=== PATIENT | male | born 1990 | race Caucasian/White ===

== ENCOUNTER 2016-07-30 11:04 | Emergency (ER) | payer OTHER ==
--- NOTE | 2016-07-30 11:47 | ED ---
General Adult HPI - General Chief complaint: Upper Respiratory Infection Stated complaint: POSS URI Time Seen by Provider: 07/30/16 11:19 Source: patient, RN notes reviewed, old records reviewed Mode of arrival: ambulatory Limitations: no limitations - History of Present Illness Initial comments: This is a 26-year-old male here for evaluation. This patient does reveal a cough congestion runny nose and possible fever. Patient states he has a history of smoking but no other specific medical history no sick contacts or travel history. Patient states he had runny nose that developed in the cough and congestion. Symptoms progressively worsening, they started on Monday but really got worse Monday and today. Again no travel history, no significant shortness of breath - Related Data Home Medications Medication Instructions Recorded Confirmed HYDROcodone/APAP 7.5-325MG [[place] 1 tab PO BID 12/25/15 07/30/16 7.5-325] Ibuprofen [Motrin] 800 mg PO BID 12/25/15 07/30/16 Previous Rx's Medication Instructions Recorded Albuterol Inhaler [Ventolin Hfa 1 - 2 puff INHALATION Q6HR #1 07/30/16 Inhaler] inhaler Cetirizine HCl/Pseudoephedrine 1 each PO BID #30 tab.er.12h 07/30/16 [Zyrtec-D Tablet] Levofloxacin [Levaquin] 750 mg PO DAILY #7 tab 07/30/16 Naproxen [Naprosyn] 500 mg PO Q12HR #60 tab 07/30/16 Allergies Allergy/AdvReac Type Severity Reaction Status Date / Time No Known Allergies Allergy Verified 07/30/16 12:01 Review of Systems ROS Statement: Those systems with pertinent positive or pertinent negative responses have been documented in the HPI. ROS Other: All systems not noted in ROS Statement are negative. Past Medical History Additional Past Medical History / Comment(s): kidney stones. degenerative disc dz History of Any Multi-Drug Resistant Organisms: None Reported Past Surgical History: Adenoidectomy, Cholecystectomy, Tonsillectomy Additional Past Surgical History / Comment(s): lithotripsy, wisdom teeth. Past Anesthesia/Blood Transfusion Reactions: No Reported Reaction Past Psychological History: ADD/ADHD, Anxiety, Depression Smoking Status: Current every day smoker Past Alcohol Use History: Rare Past Drug Use History: None Reported - Past Family History Father Family Medical History: Myocardial Infarction ([place]) Additional Family Medical History / Comment(s): [place] x 3 General Exam Limitations: no limitations General appearance: alert, in no apparent distress Head exam: Present: atraumatic, normocephalic, normal inspection Eye exam: Present: normal appearance, PERRL, EOMI. Absent: scleral icterus, conjunctival injection, periorbital swelling ENT exam: Present: normal exam, mucous membranes moist Neck exam: Present: normal inspection. Absent: tenderness, meningismus, lymphadenopathy Respiratory exam: Present: normal lung sounds bilaterally, rhonchi. Absent: respiratory distress, wheezes, rales, stridor Cardiovascular Exam: Present: regular rate, normal rhythm, normal heart sounds. Absent: systolic murmur, diastolic murmur, rubs, gallop, clicks GI/Abdominal exam: Present: soft, normal bowel sounds. Absent: distended, tenderness, guarding, rebound, rigid Extremities exam: Present: normal inspection, full ROM, normal capillary refill. Absent: tenderness, pedal edema, joint swelling, calf tenderness Back exam: Present: normal inspection Neurological exam: Present: alert, oriented X3, CN II-XII intact Psychiatric exam: Present: normal affect, normal mood Skin exam: Present: warm, dry, intact, normal color. Absent: rash Course Vital Signs 07/30/16 11:12 Temperature 98.6 F Pulse Rate 94 Respiratory 18 Rate Blood Pressure 137/85 O2 Sat by Pulse 93 L Oximetry - Reevaluation(s) Reevaluation #1: 07/30/16 11:46 Patient's in no acute respiratory distress Medical Decision Making - Medical Decision Making 18 male here for evaluation of URI, patient with URI and probable bronchitis versus early pneumonia. Patient was treated appropriately - Radiology Data Radiology results: report reviewed (Chest x-ray two-view is negative for acute disease), image reviewed Disposition Clinical Impression: Upper respiratory infection, Pharyngitis, Sinusitis, Bronchitis, Pneumonia Disposition: HOME SELF-CARE Condition: Good Instructions: Upper Respiratory Infection (ED), Community Acquired Pneumonia ( ED) Prescriptions: Albuterol Inhaler [Ventolin Hfa Inhaler] 1 - 2 puff INHALATION Q6HR #1 inhaler Cetirizine HCl/Pseudoephedrine [Zyrtec-D Tablet] 1 each PO BID #30 tab.er.12h Levofloxacin [Levaquin] 750 mg PO DAILY #7 tab Naproxen [Naprosyn] 500 mg PO Q12HR #60 tab Referrals: Brien Rashid MD [Primary Care Provider] - 1-2 days
--- NOTE | 2016-07-30 12:13 | XR ---
EXAMINATION TYPE: XR chest 2V DATE OF EXAM: 07/30/2016 11:58 AM COMPARISON: Prior chest x-ray December 25, 2015. HISTORY: Cough and congestion. TECHNIQUE: Frontal and lateral views of the chest are obtained. FINDINGS: Somewhat low lung volumes are redemonstrated. There is no focal air space opacity, pleural effusion, or pneumothorax seen. The cardiac silhouette size is within normal limits. The osseous s tructures are intact. IMPRESSION: No acute cardiopulmonary process. No significant change from prior.
[2016-07-30 12:45] VITALS: BP 140/89; PULSE 87; RESP 16; TEMP 97.9
== END 2016-07-30 12:44 | disposition home or self-care (01) ==
LOC: EC 11:04
DX: J18.9 Pneumonia, unspecified organism (principal); J02.9 Acute pharyngitis, unspecified; J32.9 Chronic sinusitis, unspecified; J40 Bronchitis, not specified as acute or chronic; F17.200 Nicotine dependence, unspecified, uncomplicated; Z79.891 Long term (current) use of opiate analgesic; Z79.1 Long term (current) use of non-steroidal anti-inflammatories (NSAID); Z90.89 Acquired absence of other organs
CPT/HCPCS: 71020; 99284

== ENCOUNTER 2016-10-05 08:16 | Inpatient (IN) | payer OTHER ==
[2016-10-05] MEDS ORDERED: MORPHINE SULFATE 10 MG/ML SYRINGE IM STA (08:41)
--- NOTE | 2016-10-05 08:44 | ED ---
General Adult HPI - General Chief complaint: Back Pain/Injury Stated complaint: back pain Time Seen by Provider: 10/05/16 08:27 Source: patient, RN notes reviewed Mode of arrival: ambulatory Limitations: no limitations - History of Present Illness Initial comments: Patient is a 26-year-old male presents to the emergency room for evaluation. Patient complaining of mid back pain. Patient states he has a history of chronic low back pain. Patient states yesterday while in the bathroom he went to stand up to zip his pants and felt a sharp pain in his mid back. Patient states ever since then the pain has not subsided. Patient states he has been taking his Rio and alternating with ibuprofen for his low back and it has not been improving his symptoms. Patient denies numbness or tingling going down his legs. Patient denies saddle anesthesia. Patient denies urinary or fecal incontinence. Patient denies any recent fall or trauma to his back. Patient also states he has been using albuterol inhaler for cough. Patient does admit that he smokes every day. Patient states that his tongue has turned white after using albuterol inhaler. Patient also complaining of frequency in urination and constant thirst. Patient states this has been going on for the past 3 days. Patient denies fevers or chills. Patient denies any pain or burning during urination or trouble urinating. Patient denies blood in urine. Patient denies abdominal pain, headache, dizziness. Patient denies fevers or chills. - Related Data Home Medications Medication Instructions Recorded Confirmed HYDROcodone/APAP 7.5-325MG [Rio 1 tab PO BID 12/25/15 10/05/16 7.5-325] Ibuprofen [Motrin] 800 mg PO BID 12/25/15 10/05/16 Allergies Allergy/AdvReac Type Severity Reaction Status Date / Time albuterol [From Ventolin HFA] Allergy Swelling Verified 10/05/16 08:51 Review of Systems ROS Statement: Those systems with pertinent positive or pertinent negative responses have been documented in the HPI. ROS Other: All systems not noted in ROS Statement are negative. Past Medical History Additional Past Medical History / Comment(s): kidney stones. degenerative disc dz History of Any Multi-Drug Resistant Organisms: None Reported Past Surgical History: Adenoidectomy, Cholecystectomy, Tonsillectomy Additional Past Surgical History / Comment(s): lithotripsy, wisdom teeth. Past Anesthesia/Blood Transfusion Reactions: No Reported Reaction Past Psychological History: ADD/ADHD, Anxiety, Depression Smoking Status: Current every day smoker Past Alcohol Use History: Rare Past Drug Use History: None Reported - Past Family History Father Family Medical History: Myocardial Infarction ([place]) Additional Family Medical History / Comment(s): [place] x 3 Mother Additional Family Medical History / Comment(s): Mother has nephrolithiasis, gastric ulcers and has had a cholecystectomy. General Exam - General Exam Comments Initial Comments: Sitting in exam room in no acute distress. Limitations: no limitations General appearance: alert, in no apparent distress Head exam: Present: atraumatic, normocephalic, normal inspection Eye exam: Present: normal appearance ENT exam: Present: normal exam Expanded Mouth exam: Present: other (thrush) Neck exam: Present: normal inspection Respiratory exam: Present: normal lung sounds bilaterally. Absent: respiratory distress Cardiovascular Exam: Present: normal rhythm, tachycardia, normal heart sounds Extremities exam: Present: normal inspection Back exam: Present: normal inspection, paraspinal tenderness (Midthoracic spine bilaterally), vertebral tenderness (Midthoracic spine). Absent: CVA tenderness (R), CVA tenderness (L) Neurological exam: Present: alert, oriented X3, CN II-XII intact, normal gait Psychiatric exam: Present: normal affect, normal mood Skin exam: Present: warm, dry, intact, normal color. Absent: rash Course Vital Signs 10/05/16 10/05/16 08:18 13:51 Temperature 97.4 F L 97.5 F L Pulse Rate 125 H 92 Respiratory 18 16 Rate Blood Pressure 133/85 123/66 O2 Sat by Pulse 93 L 94 L Oximetry Medical Decision Making - Medical Decision Making Patient is a 26-year-old male presents emergency room for evaluation of low back pain, frequency in urination, constant thirst and thrush. Urinalysis significant for 4+ glucose. Accu-Chek 471. Acetone negative. Patient given fluids and insulin. Case discussed with Dr. Sher. Dr. Sher discussed case with Dr. Rashid who agreed to admit patient for new onset diabetes. Patient will be placed on insulin sliding scale. Hemoglobin A1c pending. Patient will be placed on nystatin swish and swallow for thrush. Plan discussed with patient. - Lab Data Result diagrams: 10/05/16 09:40 10/05/16 09:40 Lab Results 10/05/16 10/05/16 10/05/16 Range/Units 08:43 09:27 09:40 WBC (3.8-10.6) k/uL RBC (4.30-5.90) m/uL Hgb (13.0-17.5) gm/dL Hct (39.0-53.0) % MCV (80.0-100.0) fL MCH (25.0-35.0) pg MCHC (31.0-37.0) g/dL RDW (11.5-15.5) % Plt Count (150-450) k/uL Neutrophils % % Lymphocytes % % Monocytes % % Eosinophils % % Basophils % % Neutrophils # (1.3-7.7) k/uL Lymphocytes # (1.0-4.8) k/uL Monocytes # (0-1.0) k/uL Eosinophils # (0-0.7) k/uL Basophils # (0-0.2) k/uL Sodium (137-145) mmol/L Potassium (3.5-5.1) mmol/L Chloride (98-107) mmol/L Carbon Dioxide (22-30) mmol/L Anion Gap mmol/L BUN (9-20) mg/dL Creatinine (0.66-1.25) mg/dL Est GFR (MDRD) Af Amer (>60 ml/min/1.73 sqM) Est GFR (MDRD) Non-Af (>60 ml/min/1.73 sqM) Glucose (74-99) mg/dL POC Glucose (mg/dL) 471 H (75-99) mg/dL POC Glu Armored [employer] Guard And Driver ID RossLinda smith [address] Glu mg/dL mg/dL Hemoglobin A1c (4.2-6.1) % Calcium (8.4-10.2) mg/dL Total Bilirubin (0.2-1.3) mg/dL AST (17-59) U/L ALT (21-72) U/L Alkaline Phosphatase (38-126) U/L Total Protein (6.3-8.2) g/dL Albumin (3.5-5.0) g/dL Amylase (30-110) U/L Lipase 43 (23-300) U/L Urine Color Yellow Urine Appearance Clear (Clear) Urine pH 5.5 (5.0-8.0) Ur Specific Calvin 1.029 (1.001-1.035) Urine Protein 1+ H (Negative) Urine Glucose (UA) 4+ H (Negative) Urine Ketones Negative (Negative) Urine Blood Negative (Negative) Urine Nitrate Negative (Negative) Urine Bilirubin Negative (Negative) Urine Urobilinogen <2.0 (<2.0) mg/dL Ur Leukocyte Esterase Negative (Negative) Urine RBC 1 (0-5) /hpf Urine WBC 1 (0-5) /hpf Acetone, Qual (Negative) 10/05/16 10/05/16 10/05/16 Range/Units 09:40 09:40 09:40 WBC 12.6 H (3.8-10.6) k/uL RBC 5.18 (4.30-5.90) m/uL Hgb 16.5 (13.0-17.5) gm/dL Hct 46.1 (39.0-53.0) % MCV 88.8 (80.0-100.0) fL MCH 31.9 (25.0-35.0) pg MCHC 35.9 (31.0-37.0) g/dL RDW 14.0 (11.5-15.5) % Plt Count 284 (150-450) k/uL Neutrophils % 60 % Lymphocytes % 28 % Monocytes % 7 % Eosinophils % 2 % Basophils % 1 % Neutrophils # 7.6 (1.3-7.7) k/uL Lymphocytes # 3.6 (1.0-4.8) k/uL Monocytes # 0.8 (0-1.0) k/uL Eosinophils # 0.2 (0-0.7) k/uL Basophils # 0.1 (0-0.2) k/uL Sodium 134 L (137-145) mmol/L Potassium 4.4 (3.5-5.1) mmol/L Chloride 95 L (98-107) mmol/L Carbon Dioxide 25 (22-30) mmol/L Anion Gap 14 mmol/L BUN 9 (9-20) mg/dL Creatinine 0.76 (0.66-1.25) mg/dL Est GFR (MDRD) Af Amer >60 (>60 ml/min/1.73 sqM) Est GFR (MDRD) Non-Af >60 (>60 ml/min/1.73 sqM) Glucose 467 H* (74-99) mg/dL POC Glucose (mg/dL) (75-99) mg/dL POC Glu [employer] ID Estimated Ave Glu mg/dL 243 mg/dL Hemoglobin A1c 10.1 H (4.2-6.1) % Calcium 10.1 (8.4-10.2) mg/dL Total Bilirubin 1.6 H (0.2-1.3) mg/dL AST 25 (17-59) U/L ALT 67 (21-72) U/L Alkaline Phosphatase 167 H (38-126) U/L Total Protein 7.2 (6.3-8.2) g/dL Albumin 4.3 (3.5-5.0) g/dL Amylase 35 (30-110) U/L Lipase (23-300) U/L Urine Color Urine Appearance (Clear) Urine pH (5.0-8.0) Ur Specific Calvin (1.001-1.035) Urine Protein (Negative) Urine Glucose (UA) (Negative) Urine Ketones (Negative) Urine Blood (Negative) Urine Nitrate (Negative) Urine Bilirubin (Negative) Urine Urobilinogen (<2.0) mg/dL Ur Leukocyte Esterase (Negative) Urine RBC (0-5) /hpf Urine WBC (0-5) /hpf Acetone, Qual Negative (Negative) 10/05/16 Range/Units 13:23 WBC (3.8-10.6) k/uL RBC (4.30-5.90) m/uL Hgb (13.0-17.5) gm/dL Hct (39.0-53.0) % MCV (80.0-100.0) fL MCH (25.0-35.0) pg MCHC (31.0-37.0) g/dL RDW (11.5-15.5) % Plt Count (150-450) k/uL Neutrophils % % Lymphocytes % % Monocytes % % Eosinophils % % Basophils % % Neutrophils # (1.3-7.7) k/uL Lymphocytes # (1.0-4.8) k/uL Monocytes # (0-1.0) k/uL Eosinophils # (0-0.7) k/uL Basophils # (0-0.2) k/uL Sodium (137-145) mmol/L Potassium (3.5-5.1) mmol/L Chloride (98-107) mmol/L Carbon Dioxide (22-30) mmol/L Anion Gap mmol/L BUN (9-20) mg/dL Creatinine (0.66-1.25) mg/dL Est GFR (MDRD) Af Amer (>60 ml/min/1.73 sqM) Est GFR (MDRD) Non-Af (>60 ml/min/1.73 sqM) Glucose (74-99) mg/dL POC Glucose (mg/dL) 351 H (75-99) mg/dL POC Glu [employer] ID Linda Hawkins [address] Glu mg/dL mg/dL Hemoglobin A1c (4.2-6.1) % Calcium (8.4-10.2) mg/dL Total Bilirubin (0.2-1.3) mg/dL AST (17-59) U/L ALT (21-72) U/L Alkaline Phosphatase (38-126) U/L Total Protein (6.3-8.2) g/dL Albumin (3.5-5.0) g/dL Amylase (30-110) U/L Lipase (23-300) U/L Urine Color Urine Appearance (Clear) Urine pH (5.0-8.0) Ur Specific Calvin (1.001-1.035) Urine Protein (Negative) Urine Glucose (UA) (Negative) Urine Ketones (Negative) Urine Blood (Negative) Urine Nitrate (Negative) Urine Bilirubin (Negative) Urine Urobilinogen (<2.0) mg/dL Ur Leukocyte Esterase (Negative) Urine RBC (0-5) /hpf Urine WBC (0-5) /hpf Acetone, Qual (Negative) Disposition Clinical Impression: New onset type 2 diabetes mellitus, Hyperglycemia, Back pain, Thrush Disposition: ADMITTED IP TO THIS [facility] Condition: Stable Decision Date: 10/05/16
[2016-10-05 09:07] LABS: Appearance,Urine Clear (Clear); Bilirubin,Urine Negative (Negative); Glucose,Urine (UA) 4+ (Negative); Ketones,Urine Negative (Negative); Leukocyte Esterase,Urine Negative (Negative); Nitrite,Urine Negative (Negative); PH, Urine 5.5 (5.0-8.0); Particle Count 546; Protein,Urine 1+ (Negative); RBC,Urine 1 /hpf (0-5); Specific Gravity,Urine 1.029 (1.001-1.035); UA Billing (MACRO vs. MICRO) MICRO; Urobilinogen,Urine <2.0 mg/dL (<2.0); WBC,Urine 1 /hpf (0-5)
[2016-10-05 09:28] LABS: Glucose,Whole Blood 471 mg/dL (75-99)
[2016-10-05] MEDS ORDERED: SODIUM CHLORIDE 0.9% 1,000 ML IV ONE ×2 (09:36→11:48)
[2016-10-05 10:01] LABS: Basophils # (A) 0.1 k/uL (0-0.2); Basophils % (A) 1 %; CH 32.5; CHCM 36.7; Eosinophils # (A) 0.2 k/uL (0-0.7); Eosinophils % (A) 2 %; HCT 46.1 % (39.0-53.0); HDW 3.17; HGB 16.5 gm/dL (13.0-17.5); Luc # (Auto) 0.34; Luc % (Auto) 3; Lymphocytes # (A) 3.6 k/uL (1.0-4.8); Lymphocytes % (A) 28 %; MCH 31.9 pg (25.0-35.0); MCHC 35.9 g/dL (31.0-37.0); MCV 88.8 fL (80.0-100.0); Mean Platelet Volume 8.5; Monocytes # (A) 0.8 k/uL (0-1.0); Monocytes % (A) 7 %; Neutrophils # (A) 7.6 k/uL (1.3-7.7); Neutrophils % (A) 60 %; RBC 5.18 m/uL (4.30-5.90); WBC 12.6 k/uL (3.8-10.6); WBC (Perox) 12.04
[2016-10-05 10:27] LABS: ALT 67 U/L (21-72); AST 25 U/L (17-59); Alkaline Phosphatase 167 U/L (38-126); Amylase 35 U/L (30-110); Anion Gap 14 mmol/L; Blood Urea Nitrogen 9 mg/dL (9-20); Calcium 10.1 mg/dL (8.4-10.2); Carbon Dioxide 25 mmol/L (22-30); Chloride 95 mmol/L (98-107); Non-African American GFR(MDRD) >60 (>60 ml/min/1.73 sqM); Potassium 4.4 mmol/L (3.5-5.1); Sodium 134 mmol/L (137-145); Total Bilirubin 1.6 mg/dL (0.2-1.3); Total Protein 7.2 g/dL (6.3-8.2)
[2016-10-05 10:31] LABS: Glucose 467 mg/dL (74-99)
[2016-10-05] MEDS ORDERED: INSULIN REGULAR 100 UNIT/ML VIAL SQ STA (11:48)
[2016-10-05] MEDS ORDERED: NALOXONE 0.4 MG/ML 1 ML VIAL IV PRN (13:10)
[2016-10-05] MEDS ORDERED: ONDANSETRON 4 MG/2 ML VIAL IVP PRN (13:10)
[2016-10-05] MEDS ORDERED: HYDROcodone/APAP 5-325MG 1 EACH TAB PO PRN (13:10)
[2016-10-05] MEDS ORDERED: ACETAMINOPHEN TAB 325 MG TAB PO PRN (13:10)
[2016-10-05 13:24] LABS: Glucose,Whole Blood 351 mg/dL (75-99)
[2016-10-05 14:26] LABS: Hemoglobin A1C 10.1 % (4.2-6.1)
[2016-10-05] MEDS: SODIUM CHLORIDE 0.9% 1,000 ML IV SCH (14:28)
--- NOTE | 2016-10-05 15:23 | XR ---
EXAM TYPE: LUMBAR SPINE X RAY SERIES COMPARISON: NONE HISTORY: Pain TECHNIQUE: 4 views are submitted. FINDINGS: Alignment is anatomic. The pedicles are intact. The transverse processes are intact. There is no s pondylolysis or spondylolisthesis. Spina bifida occulta lumbosacral junction. IMPRESSION: 1. No acute process.
[2016-10-05] MEDS: HYDROmorphone 1 MG/ML 1 ML SYRINGE IVP PRN (16:43)
[2016-10-05 16:54] LABS: Glucose,Whole Blood 310 mg/dL (75-99)
[2016-10-05] MEDS: INSULIN LISPRO (humaLOG) 300 UNIT/3 ML VIAL SQ SCH ×2 (17:20→21:10)
[2016-10-05] MEDS: NYSTATIN 100,000 UNIT/ML SUSP 500,000 UNIT/5 ML CUP PO SCH ×2 (17:24→21:09)
[2016-10-05 19:38] LABS: Glucose,Whole Blood 384 mg/dL (75-99)
[2016-10-05] MEDS: metFORMIN 500 MG TAB PO SCH (19:39)
[2016-10-05 20:07] LABS: Hepatitis B Surface Ag Index 0.07
[2016-10-05 20:12] LABS: Hepatitis B Core IgM Index 0.06
[2016-10-05 20:24] LABS: Hepatitis C Virus IgG Ab Negative (Negative); Hepatitis C Virus IgG Index 0.01
[2016-10-05 20:54] LABS: Glucose,Whole Blood 335 mg/dL (75-99)
[2016-10-05] MEDS ORDERED: INSULIN GLARGINE 100 UNIT/ML 10 ML VIAL SQ SCH (21:00)
[2016-10-05] MEDS: HYDROcodone/APAP 7.5-325MG 1 EACH TAB PO SCH (21:08)
[2016-10-05] MEDS: IBUPROFEN 800 MG TAB PO SCH (21:08)
--- NOTE | 2016-10-05 22:18 | HP ---
CHIEF COMPLAINT: A 26-year-old white male with back pain and injury, uncontrolled diabetes mellitus, new onset. A 26-year-old white male was brought into the emergency due to severe polyuria, dysuria cough, congestion and worsening low back pain. His x-ray in the ER was negative. He has been taking ibuprofen with some improvement to his symptoms. He denies any tingling on his legs or saddle anesthesia. Denies urinary or fecal incontinence. He is also complaining of frequency in urination and constant thirst. He was found to have sugar in the high 400s for which he was admitted to the hospital for new onset diabetes mellitus, uncontrolled. Aspirin and Lucile for pain. ALLERGIES: ALBUTEROL. REVIEW OF SYSTEMS: Fourteen-point review of systems negative except for seen in the HPI. Past surgical history of renal stones, degenerative disc disease, adenoidectomy, cholecystectomy, tonsillectomy, lithotripsy, ADD, anxiety, depression. Current every day smoker. No alcohol. No illicit drugs. PAST MEDICAL HISTORY: Myocardial infarction x3. His mother had nephrolithiasis, gastric ulcers, cholecystectomy. PHYSICAL EXAM: VITAL SIGNS: Stable, afebrile. Temp 97.4, pulse 90s/100s, respiratory rate 16 to 18, O2 93% to 94% on room air. Blood pressure 120s to 130s over 60s to 70s. CARDIOVASCULAR: S1, S2. Lungs show scattered wheezes, rhonchi. VASCULAR: Normal dorsalis pedis, posterior tibial, radial pulses. ENDOCRINE: Current BMI is over 40. OPHTHALMOLOGIC: Pupils equal, round, and reactive to light and accommodation. NEUROLOGIC: Alert and oriented x3. PSYCHIATRIC: Fair mood and affect. ASSESSMENT: 1. Uncontrolled diabetes mellitus. Accu-Chek protocol will be ordered. Metformin will be started. Pain medicines will be given for pain. 2. Hyponatremia. 3. Metformin will be started and Soma will be started. Back pain will be controlled. IV fluids will be given. Please see further orders.
[2016-10-06] MEDS: HYDROmorphone 1 MG/ML 1 ML SYRINGE IVP PRN ×2 (00:15→08:04)
[2016-10-06] MEDS: SODIUM CHLORIDE 0.9% 1,000 ML IV SCH ×2 (00:19→10:51)
[2016-10-06] MEDS: metFORMIN 500 MG TAB PO SCH (07:51)
[2016-10-06] MEDS: INSULIN LISPRO (humaLOG) 300 UNIT/3 ML VIAL SQ SCH ×2 (07:51→12:35)
[2016-10-06] MEDS: HYDROcodone/APAP 7.5-325MG 1 EACH TAB PO SCH (07:57)
[2016-10-06] MEDS: IBUPROFEN 800 MG TAB PO SCH (07:58)
[2016-10-06] MEDS: NYSTATIN 100,000 UNIT/ML SUSP 500,000 UNIT/5 ML CUP PO SCH ×2 (07:58→12:12)
[2016-10-06 08:00] LABS: Glucose,Whole Blood 300 mg/dL (75-99)
[2016-10-06 08:02] VITALS: BP 124/75; PULSE 92; RESP 20; TEMP 97.5
--- NOTE | 2016-10-06 09:01 | US ---
EXAMINATION TYPE: US abdomen complete DATE OF EXAM: 10/06/2016 8:17 AM COMPARISON: CT abdomen pelvis April 20, 2015 CLINICAL HISTORY: ruq pain, patient 6'2 and 350lbs. EXAM MEASUREMENTS: Liver Length: 23.0 cm Gallbladder Wall: Surgically absent cm CBD: 0.4 cm Spleen: 13.2 cm Right Kidney: 11.8 x 4.4 x 5.5cm Left Kidney: 12.8 x 5.1 x 6.2 cm TECHNOLOGIST IMPRESSION: Morbidly obese patient, technically difficult study, limited visualization Pancreas: Obscured by bowel gas Liver: Increased attenuation, decreased visualization of vessels suggestive of fatty infiltrate Gallbladder: Surgically absent Evidence for sonographic Villalta's sign: No CBD: wnl Spleen: upper limits of normal in size Right Kidney: inferior pole obscured by overlying bowel gas Left Kidney: inferior pole obscured by overlying bowel gas Upper IVC: wnl Abd Aorta: only visualized mid, mid wnl, prox, distal, and bifurcation obscured by bowel gas Exam is noted suboptimal secondary to overlying bowel gas and patient's large body habitus. The liver is heterogeneously hyperechoic. No intrahepatic ductal dilatation is identified. Evaluation for focal masses is limited due to the heterogeneity. Finding is presumed on basis of diffuse fatty infiltration. The intrahepatic portion of the IVC and visualized abdominal aorta are within normal l imits. Gallbladder is surgically absent. Common bile duct is unremarkable. The visualized portions of the pancreas is obscured by overlying bowel gas. The spleen is upper limits of normal in size wit hout suspicious focal intrasplenic mass. Kidneys are symmetric and free of hydronephrosis. No renal lesions are seen on images saved. IMPRESSION: Exam is suboptimal, diffuse fatty infiltration of liver is redemonstrated. No acute findi ng is clearly seen to account for patient's symptoms.
[2016-10-06 12:22] VITALS: BMI 43.7
[2016-10-06 12:36] LABS: Glucose,Whole Blood 295 mg/dL (75-99)
--- NOTE | 2016-10-06 13:25 | P.DS ---
Providers Date of admission: 10/05/16 13:36 Expected date of discharge: 10/06/16 Attending physician: Brien Lee [facility] Course: 26-year-old morbid obese chest male being seen with a chief complaint of developing severe polyuria frequent urination frequent thirst drinking constant. Patient was seen in the emergency room blood sugar was noted to be elevated at 400. Additionally patient stated that he was having low back pain. Patient states that he had been taking aspirin and Hunter for pain. Hemoglobin A1c was 10.1 on admission the ultrasound of the abdomen suboptimal show diffuse fatty infiltrations of the liver no acute findings patient was seen by the hot sealing machine operator did receive information about diabetic teaching. Patient was started on Lantus as well as metformin hepatitis panel was negative urinalysis was negative there was no ketones noted patient stated he was comfortable giving insulin he had been instructed by the nursing staff as well as the hot sealing machine operator. Patient was set up for diabetic education classes. Patient was comfortable with being discharged home in the supplies were set up for the patient at home Impression discharge diagnosis Present on admission hyperglycemia constant there is frequent urination blood sugar 400 New-onset type 2 diabetes hemoglobin A1c 10.5 Morbid obesity BMI 43 Active tobacco use one pack a day Chronic lower back pain with a negative lumbar x-rays The above dictated assessment and findings were discussed with dr jesus Franco and the plan of care have been dictated as directed. Faiza Akbar nurse practitioner acting as a scribe for dr lee Patient Condition at Discharge: Stable Plan - Discharge Summary New Discharge Prescriptions: Insulin Glargine [Lantus] 20 unit SQ HS #1 vial metFORMIN HCL 1,000 mg PO BID #60 tab Discharge Medication List HYDROcodone/APAP 7.5-325MG [Hunter 7.5-325] 1 tab PO BID 12/25/15 [History] Ibuprofen [Motrin] 800 mg PO BID 12/25/15 [History] Acetaminophen Tab [Tylenol] 650 mg PO Q6HR PRN #0 tab 10/06/16 [Rx] Insulin Glargine [Lantus] 20 unit SQ HS #1 vial 10/06/16 [Rx] metFORMIN HCL 1,000 mg PO BID #60 tab 10/06/16 [Rx] Follow up Appointment(s)/Referral(s): Brien Lee MD [Primary Care Provider] - 10/10/16 10:30 am (Please pickler helper paperwork at office prior to appointment and fill out. ) Patient Instructions/Handouts: Type 2 Diabetes in Adults (DC) Activity/Diet/Wound Care/Special Instructions: Outpatient diabetes education information provided. Class is located on 3rd floor [facility] inside [facility]. They will call you with class time. Diabetic diet. Diabetic folder given. Weight loss patient has been seen by the hot sealing machine operator about low-fat diet Smoking cessation information has been provided patient's been advised to stop smoking cigarettes Activity as tolerated. Discharge Disposition: HOME SELF-CARE
== END 2016-10-06 14:27 | disposition home or self-care (01) | DRG 638 ==
LOC: EC 08:16 → 4MS4W 13:36
PROVIDERS: ADMIT Family Medicine; ATTEND Family Medicine
DX: E11.65 Type 2 diabetes mellitus with hyperglycemia (principal); E87.1 Hypo-osmolality and hyponatremia; B37.0 Candidal stomatitis; Z68.41 Body mass index [BMI] 40.0-44.9, adult; E66.01 Morbid (severe) obesity due to excess calories; F17.200 Nicotine dependence, unspecified, uncomplicated; F90.9 Attention-deficit hyperactivity disorder, unspecified type; Z82.49 Family history of ischemic heart disease and other diseases of the circulatory system; Z87.442 Personal history of urinary calculi; Z84.1 Family history of disorders of kidney and ureter; M54.5 Low back pain; G89.29 Other chronic pain; Z79.1 Long term (current) use of non-steroidal anti-inflammatories (NSAID); Z88.8 Allergy status to other drugs, medicaments and biological substances
CPT/HCPCS: 36415; 72100; 76700; 80053; 80074; 81001; 82009; 82150; 83036; 83690; 84443; 84681; 85025

== ENCOUNTER 2021-06-03 15:01 | Emergency (ER) | payer OTHER ==
[2021-06-03 18:01] VITALS: BP 131/89; PULSE 85; RESP 20; TEMP 97
[2021-06-03] MEDS ORDERED: LIDOCAINE 1% INJ 10MG/ML (20 ML MDV) SQ ONE (18:40)
[2021-06-03] MEDS ORDERED: BACITRACIN OINT 1 EACH PACKET TOPICAL ONE (18:40)
--- NOTE | 2021-06-03 19:03 | ED ---
General Adult HPI - General Chief complaint: Wound/Laceration Stated complaint: Cut right index finger Time Seen by Provider: 06/03/21 18:34 Source: patient Mode of arrival: ambulatory Limitations: no limitations - History of Present Illness Initial comments: 30-year-old male presents to the emergency Department with complaints of laceration to the second digit of the right hand. Patient states the injury occurred on the blade of a metal reclamation kettle tender approximately an hour prior to arrival. Patient denies loss of sensation or movement; denies head of any foreign body. Bleeding controlled prior to arrival. States his last tetanus shot was in 2012. - Related Data Home Medications Medication Instructions Recorded Confirmed HYDROcodone/APAP 7.5-325MG [[place] 1 tab PO BID 12/25/15 10/05/16 7.5-325] Ibuprofen [Motrin] 800 mg PO BID 12/25/15 10/05/16 Previous Rx's Medication Instructions Recorded Acetaminophen Tab [Tylenol] 650 mg PO Q6HR PRN #0 tab 10/06/16 Insulin Glargine [Lantus Vial] 20 unit SQ HS #1 vial 10/06/16 metFORMIN HCL [Glucophage] 1,000 mg PO BID #60 tab 10/06/16 Allergies Allergy/AdvReac Type Severity Reaction Status Date / Time No Known Allergies Allergy Verified 06/03/21 17:58 Review of Systems ROS Statement: Those systems with pertinent positive or pertinent negative responses have been documented in the HPI. ROS Other: All systems not noted in ROS Statement are negative. Past Medical History Additional Past Medical History / Comment(s): kidney stones. degenerative disc dz History of Any Multi-Drug Resistant Organisms: None Reported Past Surgical History: Adenoidectomy, Cholecystectomy, Tonsillectomy Additional Past Surgical History / Comment(s): lithotripsy, wisdom teeth. Past Anesthesia/Blood Transfusion Reactions: No Reported Reaction Past Psychological History: ADD/ADHD, Anxiety, Depression Smoking Status: Never smoker Past Alcohol Use History: Rare Past Drug Use History: None Reported - Past Family History Father Family Medical History: Myocardial Infarction (MD) Additional Family Medical History / Comment(s): MD x 3 Mother Additional Family Medical History / Comment(s): Mother has nephrolithiasis, gastric ulcers and has had a cholecystectomy. General Exam Limitations: no limitations (Developed, well-nourished male in no acute distress. Initial temperature 97.0, pulse 85, respirations 20, blood pressure 131/89, pulse ox 94% on room air.) General appearance: alert, in no apparent distress Respiratory exam: Present: normal lung sounds bilaterally. Absent: respiratory distress, wheezes, rales, rhonchi, stridor Cardiovascular Exam: Present: regular rate, normal rhythm, normal heart sounds. Absent: systolic murmur, diastolic murmur, rubs, gallop, clicks GI/Abdominal exam: Present: soft, normal bowel sounds. Absent: distended, tenderness, guarding, rebound, rigid Right Hand Wrist exam: Present: full ROM, laceration (1 cm laceration to the second digit, MIP, dorsal surface of the right hand.), other (Distal sensation intact, no loss of range of motion). Absent: tenderness Neuro motor exam: Present: fingers 2-5 abduction intact Vascular: Present: normal capillary refill, radial pulse. Absent: vascular compromise Neurological exam: Present: alert, oriented X3 Psychiatric exam: Present: normal affect, normal mood Skin exam: Present: warm, dry, normal color Course Vital Signs 06/03/21 17:56 Temperature 97.0 F L Pulse Rate 85 Respiratory 20 Rate Blood Pressure 131/89 O2 Sat by Pulse 94 L Oximetry Procedures - Laceration Laceration #1 Consent Obtained: verbal consent Indication: laceration Site: other (Second digit, MIP, dorsal surface right hand.) Size (cm): 1 Description: linear Depth: simple, single layer Anesthetic Used: lidocaine 1% Anesthesia Technique: nerve block (Digital block) Amount (mls): 3 Pre-repair: wound explored, irrigated extensively Type of Sutures: nylon Size of Sutures: 5-0 Number of Sutures: 2 Technique: simple, interrupted Patient Tolerated Procedure: well, no complications Additional Comments: Patient tolerated procedure well. Wound care reviewed at length. Patient verbalizes understanding. Bacitracin dressing applied and finger splint in place. Medical Decision Making - Medical Decision Making 30-year-old male presents to the emergency department for evaluation of 1 cm linear laceration to the second digit, MIP, dorsal surface right hand. Injury was sustained from the blade of the metal reclamation kettle tender. Upon exam, bleeding is controlled. Distal motor neurovascular status intact. No loss of ROM. No obvious or palpable foreign body present . Tetanus shot up-to-date. Declines need for any pain medication. X-ray of the hand was obtained, no fracture or foreign body visualized. 2 sutures were placed without complication. Bacitracin dressing was applied. Finger splint placed. Instructed to follow up with primary care provider for wound recheck in the next 1-2 days, then to have sutures removed in 7-10 days. Discharge instructions, including wound care, were reviewed at length with the patient. He verbalizes understanding and agrees with this plan. The patient's care was discussed with my attending Dr. Mena. - Radiology Data Radiology results: report reviewed, image reviewed X-ray of the right hand was obtained. Report was reviewed in its entirety. Impression per Dr. Flanagan was no acute process. Disposition Clinical Impression: Laceration of finger of right hand Disposition: HOME SELF-CARE Condition: Stable Instructions (If sedation given, give patient instructions): Care For Your Stitches (ED), Laceration (ED) Additional Instructions: Keep wound clean and dry. Gentle cleansing with mild soap and water as needed. Change dressing twice daily. Monitor carefully for any signs of infection as discussed. Sutures removed in 7-10 days. Follow-up with your primary care provider for a recheck in the next 1-2 days. Return to the emergency department with any new, worsening, or concerning s ymptoms. Is patient prescribed a controlled substance at d/c from ED?: No Referrals: None,Stated [Primary Care Provider] - 1-2 days Time of Disposition: 20:06
--- NOTE | 2021-06-03 20:00 | XR ---
PROCEDURE: XR hand limited RT - 2V DATE AND TIME: 06/03/2021 6:57 PM CLINICAL INDICATION: PHH; traumatic injury, 2nd digit, right hand TECHNIQUE: Department protocol COMPARISON: None FINDINGS: There is no fracture or malalignment. The soft tissues are unremarkable. IMPRESSION: NO ACUTE PROCESS.
== END 2021-06-03 20:12 | disposition home or self-care (01) ==
LOC: EC 15:01
DX: S61.210A Laceration without foreign body of right index finger without damage to nail, initial encounter (principal); W29.0XXA Contact with powered kitchen appliance, initial encounter
CPT/HCPCS: 73120; 99283; 12001; J2001

== ENCOUNTER 2022-06-20 20:20 | Emergency (ER) | payer OTHER ==
[2022-06-20 20:46] VITALS: BP 135/93; PULSE 100; RESP 20; TEMP 97.6
[2022-06-20] MEDS ORDERED: LIDOCAINE 1% INJ 10MG/ML (30 ML VIAL-PF) SQ ONE (20:55)
[2022-06-20] MEDS ORDERED: CEPHALEXIN 500 MG CAP PO STA (21:24)
--- NOTE | 2022-06-20 21:25 | ED ---
Wound/Laceration HPI - General Chief Complaint: Wound/Laceration Stated Complaint: Bleeding from cyst on neck Time Seen by Provider: 06/20/22 20:50 Source: patient Mode of arrival: ambulatory Limitations: no limitations - History of Present Illness Initial Comments: Patient is a pleasant 31-year-old male who presents to the emergency room after attempting to double and give a nice demonstration to a friend earlier today caused the neck to slip and created 2 small lacerations to a cyst that has been ongoing to the right lateral aspect of his neck for approximately 3 weeks. He reports that he has had multiple abscesses in the past and has required an incision and drainage to 1 and his back previously but does not note any known drug resistance to the culture that was obtained in the past. He states that the abscess has been present for approximately 3 weeks and began as a pea-sized and has slowly increased in size. He was hoping that the abscess would go away on its own but after causing it to bleed earlier today he believes that he should have it further evaluated. He denies any pain not directly associated with the abscess being palpated, range of motion impairment, headache, dizziness, chest pain, shortness breath, abdominal pain, nausea, vomiting, fevers or chills. In addition to his abscess history he has a past medical history significant for kidney stones in degenerative disc disease. - Related Data Home Medications Medication Instructions Recorded Confirmed HYDROcodone/APAP 7.5-325MG [[place] 1 tab PO BID 12/25/15 10/05/16 7.5-325] Ibuprofen [Motrin] 800 mg PO BID 12/25/15 10/05/16 Previous Rx's Medication Instructions Recorded Acetaminophen Tab [Tylenol] 650 mg PO Q6HR PRN #0 tab 10/06/16 Insulin Glargine [Lantus Vial] 20 unit SQ HS #1 vial 10/06/16 metFORMIN HCL [Glucophage] 1,000 mg PO BID #60 tab 10/06/16 Cephalexin [Keflex] 500 mg PO Q6H 10 Days #40 cap 06/20/22 Allergies Allergy/AdvReac Type Severity Reaction Status Date / Time No Known Allergies Allergy Verified 06/03/21 17:58 Review of Systems ROS Statement: Those systems with pertinent positive or pertinent negative responses have been documented in the HPI. ROS Other: All systems not noted in ROS Statement are negative. Past Medical History Additional Past Medical History / Comment(s): kidney stones. degenerative disc dz History of Any Multi-Drug Resistant Organisms: None Reported Past Surgical History: Adenoidectomy, Cholecystectomy, Tonsillectomy Additional Past Surgical History / Comment(s): lithotripsy, wisdom teeth. Past Anesthesia/Blood Transfusion Reactions: No Reported Reaction Past Psychological History: ADD/ADHD, Anxiety, Depression Smoking Status: Never smoker Past Alcohol Use History: Rare Past Drug Use History: None Reported - Past Family History Father Family Medical History: Myocardial Infarction (NH) Additional Family Medical History / Comment(s): [place] x 3 Mother Additional Family Medical History / Comment(s): Mother has nephrolithiasis, gastric ulcers and has had a cholecystectomy. General Exam Limitations: no limitations General appearance: alert, in no apparent distress Head exam: Present: atraumatic, normocephalic, normal inspection Eye exam: Present: normal appearance, PERRL, EOMI. Absent: scleral icterus, conjunctival injection, periorbital swelling ENT exam: Present: normal exam, mucous membranes moist, other Neck exam: Present: tenderness (to cystic abscess of right lower neck), full ROM, lymphadenopathy (Shotty), other (Abscess right lower neck rounded approximately 2.5 cm in diameter. Tenderness was mild surrounding induration no significant evidence of cellulitis. 2 small Less than 2 mm in length piece noted to abscess without bleeding at this time) Respiratory exam: Present: normal lung sounds bilaterally. Absent: respiratory distress, wheezes, rales, rhonchi, stridor Cardiovascular Exam: Present: regular rate, normal rhythm, normal heart sounds. Absent: systolic murmur, diastolic murmur, rubs, gallop, clicks GI/Abdominal exam: Present: soft, normal bowel sounds. Absent: distended, tenderness, guarding, rebound, rigid Extremities exam: Present: normal inspection. Absent: pedal edema, joint swelling Back exam: Present: normal inspection, full ROM Neurological exam: Present: alert, oriented X3, CN II-XII intact Psychiatric exam: Present: normal affect, normal mood Skin exam: Present: other (Abscess right neck base with 2 small mixed lacerations at the center of abscess.) Course Vital Signs 06/20/22 20:43 Temperature 97.6 F Pulse Rate 100 Respiratory 20 Rate Blood Pressure 135/93 O2 Sat by Pulse 95 Oximetry Procedures - Incision & Drainage Consent Obtained: verbal consent Site: neck (Right lower) Size (cm): 2 (2.5) Anesthetic Used: lidocaine 1% I&D Cleaning Method: Chloroprep Scalpel Used: #11 I&D Drainage Obtained: Pus, Blood Packing: Other (None) Culture Obtained?: Yes Patient Tolerated Procedure: well, no complications Medical Decision Making - Medical Decision Making 31-year-old male presenting to the emergency room with complaints of accidentally making abscess to left side of neck bleeding controlled prior to assessment of abscess. Accidental nicking not sufficient for incision and drainage of abscess. No indication for diagnostic imaging or laboratory studies. Will perform incision and drainage of abscess to left neck and placed on oral antibiotic therapy. No indication for IV antibiotic therapy. Will obtain culture during I&D. Patient tolerated incision and drainage well without complication. Culture obtained. Will place on broad-spectrum antibiotic coverage to be narrowed if needed per culture results. Advised to keep wound clean and dry. Advised to complete course of antibiotic as prescribed. Return parameters reviewed. Will discharge home in stable condition with wound care instructions. Encouraged follow-up with primary care provider. Case discussed with Dr. Rasmussen Disposition Clinical Impression: Abscess Disposition: HOME SELF-CARE Instructions (If sedation given, give patient instructions): Abscess Incision and Drainage (ED) Additional Instructions: Please keep wound clean and dry. Keep wound covered while wound continues to drain. Please complete course of antibiotic therapy. Please follow-up with your primary care provider. Please return to the Emergency Department if symptoms worsen or any other concerns. Prescriptions: Cephalexin [Keflex] 500 mg PO Q6H 10 Days #40 cap Is patient prescribed a controlled substance at d/c from ED?: No Referrals: None,Stated [Primary Care Provider] - 1-2 days Time of Disposition: 21:25
== END 2022-06-20 21:40 | disposition home or self-care (01) ==
LOC: EC 20:20
DX: L02.11 Cutaneous abscess of neck (principal); F41.9 Anxiety disorder, unspecified; F32.A Depression, unspecified
CPT/HCPCS: 87070; 87205; 99283; 10060; J2001

== ENCOUNTER 2024-01-20 15:42 | Emergency (ER) | payer OTHER ==
[2024-01-20 15:50] VITALS: BP 160/108; PULSE 95; RESP 18; TEMP 97.9
[2024-01-20 16:17] LABS: Basophils # (A) 0.1 k/uL (0-0.2); Basophils % (A) 1 %; Eosinophils # (A) 0.3 k/uL (0-0.7); Eosinophils % (A) 2 %; HCT 45.3 % (39.0-53.0); Lymphocytes # (A) 3.5 k/uL (1.0-4.8); Lymphocytes % (A) 31 %; MCH 32.7 pg (25.0-35.0); MCHC 35.3 g/dL (31.0-37.0); MCV 92.5 fL (80.0-100.0); Monocytes # (A) 0.8 k/uL (0-1.0); Monocytes % (A) 7 %; Neutrophils # (A) 6.5 k/uL (1.3-7.7); Neutrophils % (A) 57 %; Platelet Count 239 k/uL (150-450); RBC 4.89 m/uL (4.30-5.90); WBC 11.3 k/uL (3.8-10.6)
[2024-01-20 16:33] LABS: Glucose,Whole Blood 292 mg/dL (70-110)
[2024-01-20 16:34] LABS: ALT 44 U/L (4-49); AST 28 U/L (17-59); African American GFR (CKD) >90 (>60 ml/min/1.73 sqM); Albumin 4.2 g/dL (3.5-5.0); Alcohol <10 mg/dL; Alkaline Phosphatase 109 U/L (38-126); Anion Gap 7 mmol/L; Blood Urea Nitrogen 14 mg/dL (9-20); Calcium 9.4 mg/dL (8.4-10.2); Carbon Dioxide 25 mmol/L (22-30); Chloride 104 mmol/L (98-107); Glucose 357 mg/dL (74-99); INR 0.8 (<1.2); Non-African American GFR(CKD) >90 (>60 ml/min/1.73 sqM); Partial Thromboplastin Time 22.8 sec (22.0-30.0); Potassium 4.5 mmol/L (3.5-5.1); Prothrombin Time 9.5 sec (10.0-12.5); Sodium 136 mmol/L (137-145); Total Bilirubin 0.9 mg/dL (0.2-1.3); Total Protein 6.5 g/dL (6.3-8.2)
--- NOTE | 2024-01-20 16:39 | ED ---
General Adult HPI - General Chief complaint: Fall Stated complaint: Fall Time Seen by Provider: 01/20/24 15:51 Source: patient, family Mode of arrival: EMS Limitations: no limitations - History of Present Illness Initial comments: Dictation was produced using [employer] dictation software. please excuse any grammatical, word or spelling errors. Chief Complaint: 33-year-old male presents to the emergency department altered mental status after fall History of Present Illness: Patient 33-year-old male presents emergency department altered mental status after fall. History present illness obtained from EMS. Patient at 230 was apparently 10 feet high attaching a down spinal. Apparently he lost his footing fell to the ground. Patient states that he was able to get up. The next thing he remembers he wakes up on the floor. came home and saw him on the ground called 911. If he lost any consciousness. He does remember the fall. The ROS documented in this emergency department record has been reviewed and confirmed by me. Those systems with pertinent positive or negative responses have been documented in the HPI. All other systems are other negative and/or noncontributory. - Related Data Home Medications Medication Instructions Recorded Confirmed HYDROcodone/APAP 7.5-325MG [[place] 1 tab PO BID 12/25/15 10/05/16 7.5-325] Ibuprofen [Motrin] 800 mg PO BID 12/25/15 10/05/16 Previous Rx's Medication Instructions Recorded Acetaminophen Tab [Tylenol] 650 mg PO Q6HR PRN #0 tab 10/06/16 Insulin Glargine [Lantus Vial] 20 unit SQ HS #1 vial 10/06/16 metFORMIN HCL [Glucophage] 1,000 mg PO BID #60 tab 10/06/16 Cephalexin [Keflex] 500 mg PO Q6H 10 Days #40 cap 06/20/22 Allergies Allergy/AdvReac Type Severity Reaction Status Date / Time No Known Allergies Allergy Verified 01/20/24 15:50 Review of Systems ROS Statement: Those systems with pertinent positive or pertinent negative responses have been documented in the HPI. ROS Other: All systems not noted in ROS Statement are negative. Past Medical History Additional Past Medical History / Comment(s): kidney stones. degenerative disc dz History of Any Multi-Drug Resistant Organisms: None Reported Past Surgical History: Adenoidectomy, Cholecystectomy, Tonsillectomy Additional Past Surgical History / Comment(s): lithotripsy, wisdom teeth. Past Anesthesia/Blood Transfusion Reactions: No Reported Reaction Past Psychological History: ADD/ADHD, Anxiety, Depression Smoking Status: Never smoker Past Alcohol Use History: Rare Past Drug Use History: None Reported - Past Family History Father Family Medical History: Myocardial Infarction ([place]) Additional Family Medical History / Comment(s): [place] x 3 Mother Additional Family Medical History / Comment(s): Mother has nephrolithiasis, gastric ulcers and has had a cholecystectomy. General Exam - General Exam Comments Initial Comments: PHYSICAL EXAM: General Impression: Alert and oriented x3, not in acute distress HEENT: Palpatory tenderness to the right protestant, extra-ocular movements intact, pupils equal and reactive to light bilaterally, mucous membranes moist. Cardiovascular: Heart regular rate and rhythm Chest: Able to complete full sentences, no retractions, no tachypnea Abdomen: abdomen soft, non-tender, non-distended, no organomegaly Musculoskeletal: Pulses present and equal in all extremities, no peripheral edema Motor: no focal deficits noted Neurological: CN II-XII grossly intact, no focal motor or sensory deficits noted Skin: Intact with no visualized rashes Psych: Normal affect and mood Limitations: no limitations Course Vital Signs 01/20/24 15:43 Temperature 97.9 F Pulse Rate 95 Respiratory 18 Rate Blood Pressure 160/108 O2 Sat by Pulse 96 Oximetry EKG Findings - EKG Comments: EKG Findings:: My EKG interpretation: Ventricular rate 96, sinus rhythm,. 172, cures 91, QTc 379. No MO prolongation, no QTC prolongation, no ST or T-wave changes noted. Overall, this EKG is unremarkable Medical Decision Making - Medical Decision Making Was pt. sent in by a medical professional or institution (, PA, WET MIX OPERATOR, urgent care, hospital, or intermediate...) When possible be specific @ -No Did you speak to anyone other than the patient for history (EMS, parent, family, police, friend...)? What history was obtained from this source @ -History obtained from EMS as described above Did you review nursing and triage notes (agree or disagree)? Why? @ -I reviewed and agree with nursing and triage notes Were old charts reviewed (outside hosp., previous admission, EMS record, old EKG, old radiological studies, urgent care reports/EKG's, intermediate records)? Report findings @ -No old charts were reviewed Differential Diagnosis (chest pain, altered mental status, abdominal pain women, abdominal pain men, vaginal bleeding, musculoskeletal, weakness, fever, dyspnea, syncope, headache, dizziness, GI bleed, back pain, seizure, CVA, palpatations, mental health)? @ -Differential Altered Mental Status: Hypoglycemia, DKA, hypercapnia, ETOH, overdose, CO poisoning, trauma, myxedema coma, HTN encephalopathy, infection, encephalitis, psychosis, intercranial hemorrhage, hepatic encephalopathy, meningitis, CVA, this is not meant to be an all-inclusive list EKG interpreted by me (3pts min.). @ -See above X-rays interpreted by me (1pt min.). @ -Pelvis x-ray chest x-ray shows no acute processes CT interpreted by me (1pt min.). @ -CT scan of the head C-spine chest and pelvis shows no acute traumatic processes U/S interpreted by me (1pt. min.). @ -None done What testing was considered but not performed or refused? (CT, X-rays, U/S, labs)? Why? @ -None What meds were considered but not given or refused? Why? @ -None Was smoking cessation discussed for >3mins.? @ -No Were there social determinants of health that impacted care today? How? (Homelessness, low income, unemployed, alcoholism, drug addiction, transportation, low edu. Level, literacy, decrease access to med. care, usp, rehab)? @ -No Was there de-escalation of care discussed even if they declined (Discuss DNR or withdrawal of care, Hospice)? DNR status @ -No What co-morbidities impacted this encounter? (DM, HTN, Smoking, COPD, CAD, Cancer, CVA, ARF, Chemo, Hep., AIDS, mental health diagnosis, sleep apnea, morbid obesity)? @ -None Was patient admitted / discharged? Hospital course, mention meds given and route, prescriptions, significant lab abnormalities, going to OR and other pert inent info. @ -33-year-old male presents to the emergency department with altered mental status after fall from ladder. Vital signs stable. Patient altered at upon initial evaluation. GCS 14. Given fall history and confusion level [address] of the chest abdomen pelvis head and C-spine negative for any acute processes. Laboratory evaluation is unremarkable. Patient reevaluated bedside at 6:26 PM. Patient is well-appearing does not have any complaints. at the bedside states that he appears to be at baseline. Clinical presentation consistent with concussion. Did you discuss the management of the patient with other professionals (professionals i.e. , PA, WET MIX OPERATOR, lab, RT, psych nurse, transition social worker, health data administrator, teacher, learning and development officer, outpatient case manager)? Give summary @ -Discussed with with trauma surgeon for level 2 trauma activation Was critical care preformed (if so, how long)? @ -Yes, 33 minutes Undiagnosed new problem with uncertain prognosis? @ -No Drug Therapy requiring intensive monitoring for toxicity (Heparin, Nitro, Insulin, Cardizem)? @ -No Were any procedures done? @ -No Diagnosis/symptom? Acute, or Chronic, or Acute on Chronic? Uncomplicated ( without systemic symptoms) or Complicated (systemic symptoms)? @ -Concussion Side effects of treatment? @ -No Exacerbation, Progression, or Severe Exacerbation? @ -No Poses a threat to life or bodily function? How? (Chest pain, [place], [place], pneumonia, PE, COPD, DKA, ARF, appy, cholecystitis, CVA, Diverticulitis, Homicidal, Suicidal, threat to staff... and all critical care pts) @ -yes - Lab Data Result diagrams: 01/20/24 16:02 01/20/24 16:02 Lab Results 01/20/24 01/20/24 01/20/24 Range/Units 15:55 16:02 16:02 WBC 11.3 H (3.8-10.6) k/uL RBC 4.89 (4.30-5.90) m/uL Hgb 16.0 (13.0-17.5) gm/dL Hct 45.3 (39.0-53.0) % MCV 92.5 (80.0-100.0) fL MCH 32.7 (25.0-35.0) pg MCHC 35.3 (31.0-37.0) g/dL RDW 13.0 (11.5-15.5) % Plt Count 239 (150-450) k/uL MPV 8.0 Neutrophils % 57 % Lymphocytes % 31 % Monocytes % 7 % Eosinophils % 2 % Basophils % 1 % Neutrophils # 6.5 (1.3-7.7) k/uL Lymphocytes # 3.5 (1.0-4.8) k/uL Monocytes # 0.8 (0-1.0) k/uL Eosinophils # 0.3 (0-0.7) k/uL Basophils # 0.1 (0-0.2) k/uL PT 9.5 L (10.0-12.5) sec INR 0.8 (<1.2) APTT 22.8 (22.0-30.0) sec Sodium (137-145) mmol/L Potassium (3.5-5.1) mmol/L Chloride (98-107) mmol/L Carbon Dioxide (22-30) mmol/L Anion Gap mmol/L BUN (9-20) mg/dL Creatinine (0.66-1.25) mg/dL Est GFR (CKD-EPI)AfAm (>60 ml/min/1.73 sqM) Est GFR (CKD-EPI)NonAf (>60 ml/min/1.73 sqM) Glucose (74-99) mg/dL POC Glucose (mg/dL) (70-110) mg/dL POC Glu Firmware Developer ID Calcium (8.4-10.2) mg/dL Total Bilirubin (0.2-1.3) mg/dL AST (17-59) U/L ALT (4-49) U/L Alkaline Phosphatase (38-126) U/L Troponin I (0.000-0.034) ng/mL Total Protein (6.3-8.2) g/dL Albumin (3.5-5.0) g/dL Urine Opiates Screen (NotDetected) Ur Oxycodone Screen (NotDetected) Urine Methadone Screen (NotDetected) Ur Barbiturates Screen (NotDetected) U Tricyclic Antidepress (NotDetected) Ur Phencyclidine Scrn (NotDetected) Ur Amphetamines Screen (NotDetected) U Methamphetamines Scrn (NotDetected) U Benzodiazepines Scrn (NotDetected) Urine Cocaine Screen (NotDetected) U Marijuana (THC) Screen (NotDetected) Serum Alcohol mg/dL Blood Type Blood Type Confirm O Positive Blood Type Recheck Bld Type Recheck Status Antibody Screen Spec Expiration Date 01/20/24 01/20/2424 Range/Units 16:02 16:02 16:02 WBC (3.8-10.6) k/uL RBC (4.30-5.90) m/uL Hgb (13.0-17.5) gm/dL Hct (39.0-53.0) % MCV (80.0-100.0) fL MCH (25.0-35.0) pg MCHC (31.0-37.0) g/dL RDW (11.5-15.5) % Plt Count (150-450) k/uL MPV Neutrophils % % Lymphocytes % % Monocytes % % Eosinophils % % Basophils % % Neutrophils # (1.3-7.7) k/uL Lymphocytes # (1.0-4.8) k/uL Monocytes # (0-1.0) k/uL Eosinophils # (0-0.7) k/uL Basophils # (0-0.2) k/uL PT (10.0-12.5) sec INR (<1.2) APTT (22.0-30.0) sec Sodium 136 L (137-145) mmol/L Potassium 4.5 (3.5-5.1) mmol/L Chloride 104 (98-107) mmol/L Carbon Dioxide 25 (22-30) mmol/L Anion Gap 7 mmol/L BUN 14 (9-20) mg/dL Creatinine 0.72 (0.66-1.25) mg/dL Est GFR (CKD-EPI)AfAm >90 (>60 ml/min/1.73 sqM) Est GFR (CKD-EPI)NonAf >90 (>60 ml/min/1.73 sqM) Glucose 357 H (74-99) mg/dL POC Glucose (mg/dL) (70-110) mg/dL POC Glu Firmware Developer ID Calcium 9.4 (8.4-10.2) mg/dL Total Bilirubin 0.9 (0.2-1.3) mg/dL AST 28 (17-59) U/L ALT 44 (4-49) U/L Alkaline Phosphatase 109 (38-126) U/L Troponin I <0.012 (0.000-0.034) ng/mL Total Protein 6.5 (6.3-8.2) g/dL Albumin 4.2 (3.5-5.0) g/dL Urine Opiates Screen (NotDetected) Ur Oxycodone Screen (NotDetected) Urine Methadone Screen (NotDetected) Ur Barbiturates Screen (NotDetected) U Tricyclic Antidepress (NotDetected) Ur Phencyclidine Scrn (NotDetected) Ur Amphetamines Screen (NotDetected) U Methamphetamines Scrn (NotDetected) U Benzodiazepines Scrn (NotDetected) Urine Cocaine Screen (NotDetected) U Marijuana (THC) Screen (NotDetected) Serum Alcohol <10 mg/dL Blood Type O Positive Blood Type Confirm Blood Type Recheck No Previous Record Bld Type Recheck Status CABO Indicated Antibody Screen NEGATIVE Spec Expiration Date 01/23/2024 - 230101/20/24 01/20/24 Range/Units 16:30 16:32 WBC (3.8-10.6) k/uL RBC (4.30-5.90) m/uL Hgb (13.0-17.5) gm/dL Hct (39.0-53.0) % MCV (80.0-100.0) fL MCH (25.0-35.0) pg MCHC (31.0-37.0) g/dL RDW (11.5-15.5) % Plt Count (150-450) k/uL MPV Neutrophils % % Lymphocytes % % Monocytes % % Eosinophils % % Basophils % % Neutrophils # (1.3-7.7) k/uL Lymphocytes # (1.0-4.8) k/uL Monocytes # (0-1.0) k/uL Eosinophils # (0-0.7) k/uL Basophils # (0-0.2) k/uL PT (10.0-12.5) sec INR (<1.2) APTT (22.0-30.0) sec Sodium (137-145) mmol/L Potassium (3.5-5.1) mmol/L Chloride (98-107) mmol/L Carbon Dioxide (22-30) mmol/L Anion Gap mmol/L BUN (9-20) mg/dL Creatinine (0.66-1.25) mg/dL Est GFR (CKD-EPI)AfAm (>60 ml/min/1.73 sqM) Est GFR (CKD-EPI)NonAf (>60 ml/min/1.73 sqM) Glucose (74-99) mg/dL POC Glucose (mg/dL) 292 H (70-110) mg/dL POC Glu Firmware Developer ID Donna Harmon Calcium (8.4-10.2) mg/dL Total Bilirubin (0.2-1.3) mg/dL AST (17-59) U/L ALT (4-49) U/L Alkaline Phosphatase (38-126) U/L Troponin I (0.000-0.034) ng/mL Total Protein (6.3-8.2) g/dL Albumin (3.5-5.0) g/dL Urine Opiates Screen Not Detected (NotDetected) Ur Oxycodone Screen Not Detected (NotDetected) Urine Methadone Screen Not Detected (NotDetected) Ur Barbiturates Screen Not Detected (NotDetected) U Tricyclic Antidepress Not Detected (NotDetected) Ur Phencyclidine Scrn Not Detected (NotDetected) Ur Amphetamines Screen Not Detected (NotDetected) U Methamphetamines Scrn Not Detected (NotDetected) U Benzodiazepines Scrn Not Detected (NotDetected) Urine Cocaine Screen Not Detected (NotDetected) U Marijuana (THC) Screen Not Detected (NotDetected) Serum Alcohol mg/dL Blood Type Blood Type Confirm Blood Type Recheck Bld Type Recheck Status Antibody Screen Spec Expiration Date Disposition Clinical Impression: Fall, Concussion Disposition: HOME SELF-CARE Condition: Good Instructions (If sedation given, give patient instructions): Concussion (ED) Additional Instructions: Avoid exertional activity for the time being until cleared by primary care doctor Is patient prescribed a controlled substance at d/c from ED?: No Referrals: None,Stated [Primary Care Provider] - 1-2 days Time of Disposition: 18:27
--- NOTE | 2024-01-20 16:40 | XR ---
EXAMINATION TYPE: XR chest 1V portable, XR pelvis AP view DATE OF EXAM: 01/20/2024 Comparison: 07/30/2016 Clinical History: 33-year-old male pain after trauma Findings: Chest: Heart size is accentuated due to AP portable technique. Generalized hazy density likely due to diminished lung volumes and generalized atelectasis. No mary consolidation. No pneumothorax or pleu ral effusion seen. Pelvis: SI joints appear symmetric and intact as do the hips and pubic symphysis. No acute fracture s een. No subluxation or dislocation. Impression: 1. Chest: Hypoventilatory changes. No acute cardiopulmonary process. 2. Pelvis: No acute osseous abnormality seen.
--- NOTE | 2024-01-20 16:45 | CT ---
EXAMINATION TYPE: CT brain gerri wo con DATE OF EXAM: 01/20/2024 COMPARISON: None HISTORY: 33-year-old male fall10 feet off a ladder , pain CT DLP: 1716.8 mGycm Automated exposure control for dose reduction was used. Technique: Examination of the head was done in axial plane without intravenous contrast. Coronal and sagittal reconstructions performed. CT of the cervical spine was obtained in axial plane without intravenous injection of contrast mater ial. Coronal and sagittal reformatted images were obtained from the axial views for evaluation of f ractures, spinal alignment and canal. FINDINGS: Head: There is no evidence of acute intracranial hemorrhage, acute ischemic changes, mass, mass-effect, or extra-axial fluid collection. There is no effacement of cerebral sulci or basal subarachnoid cister ns. There is no hydrocephalus. There is no midline shift. Driscoll-white matter distinction is preserv ed. No calvarial fracture. There is mild to moderate lobulated mucosal thickening floor of the left maxil daniel sinus. Rightward nasal septal deviation. Mastoid air cells are well pneumatized. Orbits and glob es are intact. Cervical spine: The alignment of the cervical spine is normal on coronal and reformatted images. There is no cranial vertebral abnormality. Fracture of the cervical spine is not seen. There is no evidence of focal disk herniation. There is no central spinal canal stenosis. Sagittal and coronal reformatted images confirm above findings. COMBINED IMPRESSION: 1. No acute intracranial abnormality seen. 2. No acute fracture or malalignment of the cervical spine.
[2024-01-20 16:49] LABS: Amphetamine Screen,Urine Not Detected (NotDetected); Barbiturate Screen,Urine Not Detected (NotDetected); Benzodiazepines Screen,Urine Not Detected (NotDetected); Cocaine Screen,Urine Not Detected (NotDetected); Methadone Screen, Urine Not Detected (NotDetected); Opiate Screen,Urine Not Detected (NotDetected); Oxycodone Screen, Urine Not Detected (NotDetected); Phencyclidine Screen,Urine Not Detected (NotDetected); Tricyclic Antidepressant,Urine Not Detected (NotDetected); Urn Cannabinoid Scrn Not Detected (NotDetected)
--- NOTE | 2024-01-20 16:50 | CT ---
EXAMINATION TYPE: CT ChestAbdPelvis w con DATE OF EXAM: 01/20/2024 COMPARISON: Abdomen and pelvis 04/20/2015 HISTORY: 33-year-old male pain after FALL/TRAUMA TECHNIQUE: Contiguous axial scanning of the chest, abdomen, and pelvis performed with IV Contrast, pa tient injected with 100 mL of Isovue 300. Delayed images through the kidneys and bladder were obtaine d. Coronal/sagittal reconstructions performed. CT DLP: 4210.4 mGycm Automated exposure control for dose reduction was used. FINDINGS: Chest: Heart normal size without pericardial effusion. Aorta normal caliber with shortness of breath anatomy. No evidence for aortic dissection or mediastinal hematoma. No thoracic lymphadenopathy by CT size criteria. Low lung volumes with strandy atelectasis at the lung bases. No consolidation, pneumothorax, or pleur al effusion. ABDOMEN: Artifacts related to patient's arms being down. Liver enlarged at 25.7 cm with diminished attenuation suggesting fatty infiltration. Portal venous sy stem is patent. No biliary ductal dilatation. Cholecystectomy clips. Adrenal glands, kidneys, spleen, and pancreas within normal limits. No dilated small bowel, free fluid, or free air. No mesenteric or retroperitoneal lymphadenopathy. Scattered mild stool. Normal appendix. No pericolonic inflammatory change. Mildly redundant sigmoid c olon. Pelvis: Prominent distention of the urinary bladder. Right-sided pelvic phleboliths. No abnormal fluid collec tion in the pelvis or pelvic lymphadenopathy. Bones: No acute fracture seen. IMPRESSION: 1. ARMS DOWN POSITION ARTIFACTS. ALLOWING FOR THIS LIMITATION, NO ACUTE TRAUMATIC SEQUELAE IDENTIFIED IN THE CHEST, ABDOMEN, OR PELVIS. 2. Incidental: Hepatomegaly at 25.7 cm with hepatic steatosis. Appropriate clinical management is adv ised.
[2024-01-20] MEDS: MORPHINE SULFATE 4 MG/ML SYRINGE IV STA (16:57)
== END 2024-01-20 18:40 | disposition home or self-care (01) ==
LOC: EC 15:42
DX: S06.0XAA Concussion with loss of consciousness status unknown, initial encounter (principal); R40.2412 Glasgow coma scale score 13-15, at arrival to emergency department; W11.XXXA Fall on and from ladder, initial encounter
CPT/HCPCS: 99291 ×2; 96374 ×2; 36415; 86900; 86901; 80053; 84484; 85025; 85610; 85730; 86850; 80306; 72170; 71045; 72125; 70450; 71260; 74177; G0480; J2270; 80320